=== PATIENT | male | born 1995 | race Caucasian/White ===

== ENCOUNTER 2017-05-07 11:13 | Emergency (ER) | payer OTHER ==
[2017-05-07] MEDS: IBUPROFEN 600 MG TAB PO (13:05)
== END 2017-05-07 15:44 | disposition home or self-care (01) ==
LOC: FTE 11:13
DX: S99.921A Unspecified injury of right foot, initial encounter (principal); F84.0 Autistic disorder; W18.42XA Slipping, tripping and stumbling without falling due to stepping into hole or opening, initial encounter; Y92.830 Public park as the place of occurrence of the external cause
CPT/HCPCS: 73610; 73610-RT; 73630; 99283-25

== ENCOUNTER 2017-11-05 13:49 | Emergency (ER) | payer OTHER | END 2017-11-05 14:53 | disposition home or self-care (01) | LOC: FTE 13:49 | DX: S40.861A Insect bite (nonvenomous) of right upper arm, initial encounter (principal); S40.862A Insect bite (nonvenomous) of left upper arm, initial encounter; S80.861A Insect bite (nonvenomous), right lower leg, initial encounter; S80.862A Insect bite (nonvenomous), left lower leg, initial encounter; W57.XXXA Bitten or stung by nonvenomous insect and other nonvenomous arthropods, initial encounter; Y92.89 Other specified places as the place of occurrence of the external cause | CPT/HCPCS: 99283; Z7502 ==

== ENCOUNTER 2018-10-09 23:03 | Emergency (ER) | payer OTHER | END 2018-10-10 03:03 | disposition home or self-care (01) | LOC: FTE 23:03 | DX: F41.9 Anxiety disorder, unspecified (principal); F17.210 Nicotine dependence, cigarettes, uncomplicated | CPT/HCPCS: 99282; Z7502 ==

== ENCOUNTER 2018-10-28 10:46 | Emergency (ER) | payer OTHER ==
[2018-10-28] MEDS: LIDOCAINE/MYLANTA 40 ML BTL PO (12:00)
[2018-10-28] MEDS: DICYCLOMINE 10 MG CAP PO (12:01)
[2018-10-28] MEDS: SOD CHLORIDE 0.9% 1,000 ML IV (12:01)
[2018-10-28] MEDS: ONDANSETRON 4 MG INJ IV (12:01)
[2018-10-28] MEDS: morphine 2 MG INJ IV (12:01)
== END 2018-10-28 13:12 | disposition home or self-care (01) ==
LOC: FTE 10:46
DX: A08.4 Viral intestinal infection, unspecified (principal)
CPT/HCPCS: 96374; 96375; 99284-25